=== PATIENT | male | born 1955 | race Caucasian/White ===

== ENCOUNTER 2025-07-13 19:16 | Emergency (ER) | payer OTHER, MEDICAID ==
[~2025-07-13] VITALS: Ht 180.3 cm; Wt 118.2 kg
[~2025-07-13 19:16] MED LIST: BENAZAPRIL; HYDR-1421
[2025-07-13 19:30] VITALS: PULSE 96; RESP 13; TEMP 97.9; O2SAT 97
[2025-07-13 19:41] LABS: Hematocrit 42.7 % (41.0-53.0); Hemoglobin 14.9 g/dL (13.5-17.5); Mean Corpuscular Hemoglobin 35.5 pg (28.0-32.0); Mean Corpuscular Volume 101.5 fL (80.0-100.0); Nucleated Red Blood Cells % 0.2 %
[2025-07-13 19:49] LABS: Chloride 106 mmol/L (98-107); Potassium 3.8 mmol/L (3.5-5.1); Sodium 136 mmol/L (136-145)
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
[2025-07-13 19:50] LABS: Anion Gap 8 (5-15); Carbon Dioxide 22 mmol/L (20-31)
[2025-07-13 19:55] LABS: BUN/Creatinine Ratio 9.3 (10.0-20.0); Blood Urea Nitrogen 9 mg/dL (9-23); Calcium 8.3 mg/dL (8.7-10.4); Glucose 218 mg/dL (74-106)
--- NOTE | 2025-07-13 20:00 | DVH ---
CHEST RADIOGRAPH Indication: CP Technique: Single frontal view of the chest was obtained Comparison: None FINDINGS: Lines and Tubes: None Lungs: Elevation right diaphragm with atelectasis in the right base. Pleura: No effusion. No pneumothorax. Cardiomediastinal contours: Unremarkable Bones: No acute osseous abnormality. IMPRESSION: 1. No acute cardiopulmonary disease.
[2025-07-13 21:00] VITALS: BP 139/82; PULSE 91; RESP 21; O2SAT 95
--- NOTE | 2025-07-14 08:42 | ECG ---
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
--- NOTE | 2025-07-14 10:44 | ECG ---
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
== END 2025-07-13 21:43 | disposition home or self-care (01) ==
LOC: EDUNIT# 19:16 → EDBD 19:16 → ER 19:16
DX: R07.89 Other chest pain (principal); I10 Essential (primary) hypertension; E78.5 Hyperlipidemia, unspecified; Z98.890 Other specified postprocedural states
CPT/HCPCS: 36415; 71045; 80048; 84484; 85025; 93005

== ENCOUNTER 2025-07-28 14:19 | Emergency (ER) | payer MEDICAID, OTHER ==
[~2025-07-28] VITALS: Ht 180.3 cm; Wt 109.0 kg
[2025-07-28 15:00] VITALS: PULSE 87; RESP 16; O2SAT 92
--- NOTE | 2025-07-28 16:25 | ED.PDOC ---
Musculoskeletal HPI Comments HPI: This is a 69 year old male presenting to the ED with chief complaint of right hip pain. Patient reports that he has been experiencing right sided hip pain after reaching up to get something from a shelf, over-extending his right hip. Patient relays that he has had multiple instances in the past of similar pain due to over-extension. Patient states he has not followed up with an orthopedic doctor regarding his chronic right hip issues since 2015. Patient denies any fall, injury, numbness, or weakness. Past Medical history: HTN, CHF, HLD, CKF, Liver Failure, Pancreatitis, IA, Chronic Back Pain, Chronic Right Hip pain Past Surgical history: Right Hip Replacement x 2004, Cardiac Stents Medications: Reviewed Social History: Denies smoking, ETOH, and drug use. Allergies: NKDA HPI: Poor Historian. REVIEW OF SYSTEMS: CONSTITUTIONAL: Denies acute: fever, diaphoresis, chills, generalized weakness. HEAD: Denies acute: headache, photophobia Eyes: Denies acute: Double vision, vision loss, eye pain, eye discharge. EARS: Denies acute: tinnitus, hearing loss, ear discharge, ear pain, THROAT: Denies acute: sore throat, swelling, difficulty swallowing , pain with swallowing, change in voice. NECK: Denies acute: neck pain, neck swelling, stiff neck. HEART: Denies acute : chest pain, palpitations, LUNGS: Denies acute: SOB, wheezing, cough, hemoptysis ABDOMEN: Denies acute: abdominal pain, Nausea, Vomiting, diarrhea, melena , hematemesis, hematochezia SKIN: Denies acute: rash, redness, lesions, itchiness. EXTREMITIES: Denies acute: calf pain, numbness, tingling, weakness, Denies acute: Low back pain. Neuro: Denies acute: focal neurological deficit, motor or sensory focal neurological deficit, tremors, seizure like activity, confusion, dizziness, change in mental status, loss of bowel or bladder function, cauda equina like symptoms. : Denies acute: dysuria, hematuria, flank pain, increase in urinary frequency. PSYCH: Denies acute: hallucination, suicidal ideation, homicidal ideation. PHYSICAL EXAM: General: -----moderate---acute distress, awake and alert. Head: normocephalic, atraumatic. No raccoon's eyes, no batres sign. Neck: supple, trachea is midline, no swelling. Throat: Normal phonation. Eyes:, no erythema, no purulent discharge, no proptosis, no icterus. Heart: regular rate, regular rhythm, no significant murmur appreciated. Lungs: no apparent respiratory distress, Able to speak in full sentences. No wheezing, no rhonchi, no crackles. No stridors Clear to auscultation bilaterally. Abdomen: non tender to palpation, non distended, soft, no guarding, no rebound, + bowel sounds. Obese Neuro: Awake, Alert, oriented to name, self, situation, follows commands GCS=15. Speech is normal. Skin: no petechia, no purpura, no cyanosis, non-pale, not jaundice. Lower extremities: --trace bilateral - Pitting edema no deformity, no focal swelling, no calf TTP. Makes eye contact. moves all four extremities. Decreased range of motion of the right hip secondary to pain. Face: no apparent facial droop. ED COURSE: DISCLAIMER: This medical document was created using an electronic medical record system with voice recognition software and computerized dictation system. Although this document has been carefully reviewed, there might still be some phonetic and typographical errors. Occasional wrong-word or "sound-alike" substitutions may have occurred due to the inherent limitations of voice recognition software. These areas are purely typographical due to imperfections of the software programs and do not reflect any compromise in the patient's medical care. Please read the chart carefully and recognize, using context, where these substitutions have occurred. Chief Complaint: Lower Extremity Time Seen by MD: 16:21 Reviewed Notes: Medications, Allergies Allergies: Coded Allergies: NO KNOWN ALLERGIES (Unverified , 07/30/10) Home Meds Active Scripts Baclofen (Baclofen) 20 Mg Tab, 0.5 TAB PO TID for 10 Days, #15 TAB 2 Refills Prov:DALILA GUTIERREZ FUNDRAISING OFFICER 07/28/25 Reported Medications Hydrocodone-Acetaminophen (Vicodin) 1 Tab Tab 07/30/10 [Benazapril] 40 MG No Conflict Check 07/30/10 Information Source: Patient Mode of Arrival: EMS Was a procedure done? Was a procedure done?: No Differential Diagnosis EXT Differential Diagnosis: Fracture, Sprain, Dislocation, DJD, Strain, Septic, Neurovascular injury, Arthritis, Bursitis X-Ray, Labs, Meds, VS Vital Signs Date Time Temp Pulse Resp B/P (MAP) Pulse Ox O2 Delivery O2 Flow Rate FiO2 07/28/25 23:56 98.3 76 14 104/54 (71) 96 98.3 07/28/25 21:15 127/79 07/28/25 19:50 98.4 79 20 110/50 (70) 94 98.4 07/28/25 18:00 98.2 92 95 119/81 (94) 95 98.2 07/28/25 17:50 79 20 94 Room Air* 0 21 07/28/25 16:55 132/78 07/28/25 15:00 87 16 92 Room Air* 0 21 07/28/25 15:00 98.5 87 18 136/60 (85) 92 98.5 07/28/25 14:41 98.7 100 19 127/78 98 98.7 Lab Test 07/28/25 16:35 Range/Units White Blood Count 11.5 H 4.4-10.8 10^3/uL Red Blood Count 4.23 L 4.5-5.90 10^6/uL Hemoglobin 14.6 13.5-17.5 g/dL Hematocrit 42.6 41.0-53.0 % Mean Corpuscular Volume 100.7 H 80.0-100.0 fL Mean Corpuscular Hemoglobin 34.5 H 28.0-32.0 pg Mean Corpuscular Hemoglobin Concent 34.3 32.0-36.0 g/dL Red Cell Distribution Width 14.5 H 11.8-14.3 % Platelet Count 89 L 140-450 10^3/uL Mean Platelet Volume 9.2 6.9-10.8 fL Neutrophils (%) (Auto) 75.7 37.0-80.0 % Lymphocytes (%) (Auto) 9.2 L 10.0-50.0 % Monocytes (%) (Auto) 9.6 0.0-12.0 % Eosinophils (%) (Auto) 5.1 0.0-7.0 % Basophils (%) (Auto) 0.4 0.0-2.0 % Neutrophils # (Auto) 8.7 H 1.6-8.6 10 ^3/uL Lymphocytes # (Auto) 1.1 0.4-5.4 10 ^3/uL Monocytes # (Auto) 1.1 0-1.3 10 ^3/uL Eosinophils # (Auto) 0.6 0-0.8 10 ^3/uL Basophils # (Auto) 0 0-0.2 10 ^3/uL Nucleated Red Blood Cells 0.1 % Platelet Estimate Decreased Anisocytosis (manual) Slight Sodium Level 138 136-145 mmol/L Potassium Level 3.7 3.5-5.1 mmol/L Chloride Level 103 98-107 mmol/L Carbon Dioxide Level 26 20-31 mmol/L Anion Gap 9 5-15 Blood Urea Nitrogen 15 9-23 mg/dL Creatinine 0.98 0.700-1.30 mg/dL Glomerular Filtration Rate Calc 85 >90 mL/min BUN/Creatinine Ratio 15.3 10.0-20.0 Serum Glucose 115 H 74-106 mg/dL Calcium Level 8.5 L 8.7-10.4 mg/dL Total Bilirubin 1.1 H 0.2-1.0 mg/dL Aspartate Amino Transferase (AST) 66 H 13-40 U/L Alanine Aminotransferase (ALT) 61 H 7-40 U/L Alkaline Phosphatase 142 H 46-116 U/L Total Protein 6.6 5.7-8.2 g/dL Albumin 3.1 L 3.2-4.8 g/dL [place] [address] Ph: [phone] DIAGNOSTIC IMAGING Diagnostic Imaging Report : [id number] Signed PATIENT: CHICA PERRYT: [id number] UNIT: [id number] : 1955 LOC: ER ROOM / BED: / AGE / SEX: 69 / M ADM STATUS: REG ER SERVICE 1103 ORDERING PHYSICIAN: JUDI ALVARADO DO PROCEDURE(s): ABPL - CT AB PEL WO CON-NO ORAL OR IV REASON: HIP PAIN ORDER NUMBER(s): [id number], ACCESSION NUMBER(s): [id number] CLINICAL HISTORY: HIP PAIN TECHNIQUE: CT of the abdomen and pelvis was performed without IV contrast. This exam was performed according to our departmental dose optimization program. Up-to-date CT equipment and radiation dose reduction techniques are utilized as appropriate. CTDI 24 DLP 1501 COMPARISON: None FINDINGS: Abdomen/Pelvis: The adrenal glands, gallbladder, bladder, and prostate gland are grossly unremarkable. The liver is cirrhotic in morphology with nodular contour. The spleen is moderately enlarged, measuring 15.3 cm in long axis. A hypodense right renal lesion is incompletely characterized due to lack of IV contrast. There is mild generalized inflammation within the mesentery which also surrounds the pancreas. The abdominal aorta is normal in course and caliber. There are no significant atherosclerotic calcifications. There is no free intraperitoneal air. There is a small amount of free fluid. There is no enlarged abdominal pelvic lymph node. There is no bowel wall thickening or dilatation. The appendix is normal. Other: The imaged lower thorax demonstrates aortic valvular and coronary artery calcifications. There is mild right lower lobe linear atelectasis. No acute osseous abnormality is evident. There is a right total hip arthroplasty. Impression: Cirrhotic liver morphology with moderate splenomegaly and small amount of ascite s. Small amount of ascites. Mild generalized peritoneal inflammation which also surrounds the pancreas. Please correlate with amylase lipase levels to exclude pancreatitis. Aortic valvular and coronary artery calcifications. ATED BY: TWAN QUINTANA MD DICTATED DATE/TIME: 07/28/251624 SIGNED BY: TWAN QUINTANA MD SIGNED DATE/TIME: 07/28/251624 CC: Time of 1ST Reevaluation: 17:21 Reevaluation 1ST: Unchanged Time of 2ND Reevaluation: 21:23 (The case was discussed with the admitting team (HPI, physical exam, labs and diagnostic tests that were available at the time of disposition, ED course, treatment plan) on the phone. They agreed to evaluate the patient and assume care of this patient from this point forward. JÚNIOR Renteria. ) Patient Education/Counseling: Diagnosis, Treatment Family Education/Counseling: No Family Present Comments MDM: patient presented with the above HPI.---her pains---workup was initiated. patient was found with the above mentioned diagnosis. the following medications were ordered: please refer to order lists of meds and tests obtained by myself Dr. Alvarado. Patient ED course and VS have been stabilized. Patient has been reassessed in the ED and remained in a stable condition. Pertinent incidental findings were discussed with the patient and/or family. Patient/family voices understanding and is agreeable with plan. Patient has been observed in the ED adequate length of time to insure improv ement/stability. Escalation of care considered: Consideration of escalation to observation or admission Patient unable to ambulate due to pain. Patient was ADMITTED to the medicine team for further evaluation and treatment of their presentation. All the reports of any imaging studies that were ordered by myself were reviewed by myself. Departure 1 Departure Time of Disposition: 00:00 Impression: Primary Impression: Right hip pain Additional Impressions: Unable to ambulate Liver cirrhosis Ascites Disposition: ADMITTED INPATIENT Admit to: Tele Condition: Guarded e-Prescriptions Baclofen (Baclofen) 20 Mg Tab 0.5 TAB PO TID for 10 Days, #15 TAB 2 Refills Prov: DALILA GUTIERREZ NP 07/28/25 Discharged With: Self Critical Care Note Critical Care Time?: No I personally scribed for JUDI ALVARADO DO ([email or web address]) on 07/28/25 at 16:25. Electronically submitted by Joni Beal ([email or web address]). I personally scribed for JUDI ALVARADO DO ([email or web address]) on 07/28/25 at 17:54. Electronically submitted by Joni Beal ([email or web address]). JUDI ALVARADO DO Jul 28, 2025 16:25
[2025-07-28] MEDS: fentaNYL CITRATE 100 MCG/2 ML VL IV ONE ×2 (16:55→21:15)
[2025-07-28 17:07] LABS: Hematocrit 42.6 % (41.0-53.0); Hemoglobin 14.6 g/dL (13.5-17.5); Mean Corpuscular Hemoglobin 34.5 pg (28.0-32.0); Mean Corpuscular Volume 100.7 fL (80.0-100.0); Nucleated Red Blood Cells % 0.1 %
[2025-07-28 17:11] LABS: Anion Gap 9 (5-15); BUN/Creatinine Ratio 15.3 (10.0-20.0); Bilirubin, Total 1.1 mg/dL (0.2-1.0); Blood Urea Nitrogen 15 mg/dL (9-23); Carbon Dioxide 26 mmol/L (20-31); Chloride 103 mmol/L (98-107); Potassium 3.7 mmol/L (3.5-5.1); Sodium 138 mmol/L (136-145); Total Protein 6.6 g/dL (5.7-8.2)
[2025-07-28 17:12] LABS: Alanine Aminotransferase 61 U/L (7-40); Albumin 3.1 g/dL (3.2-4.8); Alkaline Phosphatase 142 U/L (46-116); Calcium 8.5 mg/dL (8.7-10.4); Glucose 115 mg/dL (74-106)
[2025-07-28 17:19] LABS: Anisocytosis Slight
[2025-07-28 17:50] VITALS: PULSE 79; RESP 20; O2SAT 94
--- NOTE | 2025-07-28 22:28 | DVHINCON2 ---
DALILA GUTIERREZ [employer]ER 07/28/25 2227: Date of service: Jul 28, [address] ALVARADO Reason for Consultation Medical management History of Present Illness 69-year-old male with past medical history of hypertension, CHF, HLD, CKD, liver cirrhosis, pancreatitis, ID, chronic back pain, right hip replacement, chronic right hip pain presents with complaints of right-sided hip pain. Patient reported that he overextended himself while reaching to get something off of a shelf. Causing the pain patient states he is having difficulty walking. States he has had similar episodes in the past. Has actually been having chronic right hip pain for 10 years. Patient denies any falls or traumatic injuries. There are no complaints of fevers, chills, shortness of breath, chest pain, palpitations, nausea, vomiting, dysuria, hematemesis, hematochezia, melena. Past Medical History Hypertension, CHF, HLD, chronic kidney disease, liver cirrhosis, pancreatitis, ID, right hip replacement, chronic back pain, chronic right hip pain Social History Denies social history Allergies: Coded Allergies: NO KNOWN ALLERGIES (Unverified , 07/30/10) Home Meds Active Scripts Baclofen (Baclofen) 20 Mg Tab, 0.5 TAB PO TID for 10 Days, #15 TAB 2 Refills Prov:DALILA GUTIERREZ [employer] 07/28/25 Reported Medications Hydrocodone-Acetaminophen (Vicodin) 1 Tab Tab 07/30/10 [Benazapril] 40 MG No Conflict Check 07/30/10 Review of Systems 10 systems reviewed and negative except as per HPI Vital Signs Vital Signs Date Time Temp Pulse Resp B/P (MAP) Pulse Ox O2 Delivery O2 Flow Rate FiO2 07/28/25 21:15 127/79 07/28/25 18:00 98.2 92 95 95 98.2 07/28/25 17:50 Room Air* 0 21 Physical Exam General: Patient unkempt. Appearance stated age. Sitting up in gurney in no acute distress HEENT: Pupils equal and reactive to light and accommodation. Extraocular muscles intact. Mucous membranes moist. Conjunctiva pink anicteric sclerae. Lungs: bilateral air entry. No wheezes, rhonchi or rales. No visible respiratory distress Cardiovascular: Regular rate and rhythm. Normal S1 and S2. Abdomen: BS normoactive, soft, nontender, nondistended, no CVA tenderness Extremities: No clubbing, cyanosis, edema no calf tenderness. Pedal pulses 2+. Tenderness to right hip Neurological: Patient is alert and oriented x3. CN 2 through 7 intact. No focal deficits of gross sensory or motor examination Labs/Diagnostic Data Labs Test 07/28/25 16:35 Range/Units White Blood Count 11.5 H 4.4-10.8 10^3/uL Red Blood Count 4.23 L 4.5-5.90 10^6/uL Hemoglobin 14.6 13.5-17.5 g/dL Hematocrit 42.6 41.0-53.0 % Mean Corpuscular Volume 100.7 H 80.0-100.0 fL Mean Corpuscular Hemoglobin 34.5 H 28.0-32.0 pg Mean Corpuscular Hemoglobin Concent 34.3 32.0-36.0 g/dL Red Cell Distribution Width 14.5 H 11.8-14.3 % Platelet Count 89 L 140-450 10^3/uL Mean Platelet Volume 9.2 6.9-10.8 fL Neutrophils (%) (Auto) 75.7 37.0-80.0 % Lymphocytes (%) (Auto) 9.2 L 10.0-50.0 % Monocytes (%) (Auto) 9.6 0.0-12.0 % Eosinophils (%) (Auto) 5.1 0.0-7.0 % Basophils (%) (Auto) 0.4 0.0-2.0 % Neutrophils # (Auto) 8.7 H 1.6-8.6 10 ^3/uL Lymphocytes # (Auto) 1.1 0.4-5.4 10 ^3/uL Monocytes # (Auto) 1.1 0-1.3 10 ^3/uL Eosinophils # (Auto) 0.6 0-0.8 10 ^3/uL Basophils # (Auto) 0 0-0.2 10 ^3/uL Nucleated Red Blood Cells 0.1 % Platelet Estimate Decreased Anisocytosis (manual) Slight Sodium Level 138 136-145 mmol/L Potassium Level 3.7 3.5-5.1 mmol/L Chloride Level 103 98-107 mmol/L Carbon Dioxide Level 26 20-31 mmol/L Anion Gap 9 5-15 Blood Urea Nitrogen 15 9-23 mg/dL Creatinine 0.98 0.700-1.30 mg/dL Glomerular Filtration Rate Calc 85 >90 mL/min BUN/Creatinine Ratio 15.3 10.0-20.0 Serum Glucose 115 H 74-106 mg/dL Calcium Level 8.5 L 8.7-10.4 mg/dL Total Bilirubin 1.1 H 0.2-1.0 mg/dL Aspartate Amino Transferase (AST) 66 H 13-40 U/L Alanine Aminotransferase (ALT) 61 H 7-40 U/L Alkaline Phosphatase 142 H 46-116 U/L Total Protein 6.6 5.7-8.2 g/dL Albumin 3.1 L 3.2-4.8 g/dL Assessment - Right hip pain Patient was seen and evaluated ER [facility] 25. The patient's chart was reviewed in its entirety including lab work, imaging, physical assessment. During the emergency department evaluation CBC: W11.5, H&H 14.6/42.6, PLT 89, Na 138, K3.7, BUN 15, creatinine 0.98, GFR 85. Total bilirubin 1.1, AST 66, ALT 61 con sistent with a history of liver cirrhosis. CT of the abdomen and pelvis was interpreted per the radiologist and reviewed by myself. Impression does read cirrhotic liver morphology with moderately splenomegaly and small amount of ascites. Mild generalized peritoneal inflammation. No acute osseous abnormality is evident right total hip arthroplasty. On evaluation the patient has no complaints of abdominal pain, nausea, vomiting. When I spoke to the patient, the patient is alert and oriented x4, sitting up in the [facility] with steady balance. Patient states that he has localized pain to the right hip, which is making it difficult for him to walk. While in the emergency department he has been treated with IV fentanyl and requesting additional dosing. At this time I did discuss outpatient management with the patient. I provided him with 2 options. First option included being discharged home with outpatient physical therapy, home safety follow up, and an outpatient follow up appointment with orthopedics. Given that he states that he is having difficulty walking, the 2nd option included temporary senior living facility placement for physical therapy. Which he declined and states that he rather be discharged home at this time. Plan/Recommendation Given that there are no acute findings, the patient has remained hemodynamically stable without respiratory distress, and patient states he has been having chronic hip pain for 10 years. The patient can be discharged home. O foster care case manager Zully has been consulted to establish home safety follow up, outpatient physical therapy, follow up with orthopedics on an outpatient basis. Patient will also be provided with information for choice urgent care which can assist in these non emergent matters. The patient was provided with strict ER precautions including but not limited to fevers, chills, dizziness, syncope, shortness of breath, chest pain, palpitations, nausea, vomiting, hematemesis, hematochezia, melena. If any of these occur return to the nearest emergency department for further evaluation and treatment. Plan discussed with: Patient HITESH HINDS MD 07/29/25 1221: Allergies: Coded Allergies: NO KNOWN ALLERGIES (Unverified , 07/30/10) Home Meds Active Scripts Baclofen (Baclofen) 20 Mg Tab, 0.5 TAB PO TID for 10 Days, #15 TAB 2 Refills Prov:DALILA GUTIERREZ NP 07/28/25 Reported Medications Hydrocodone-Acetaminophen (Vicodin) 1 Tab Tab 07/30/10 [Benazapril] 40 MG No Conflict Check 07/30/10 Additional Comments Additional Comments Additional Comments Patient's chart is reviewed. Patient is seen and evaluated and discharge planning is done by nurse practitioner in the ER. I agree with his evaluation, documentation, assessment and care plan as outlined. DALILA GUTIERREZ NP Jul 28, 2025 22:27 HITESH HINDS MD Jul 29, 2025 12:21
[2025-07-28] MEDS ORDERED: BACL20TA PO (22:32)
[2025-07-28] MEDS ORDERED: NAP500T PO (22:33)
[2025-07-28 23:56] VITALS: BP 104/54; PULSE 76; RESP 14; TEMP 98.3; O2SAT 96
== END 2025-07-29 00:18 | disposition admitted as inpatient to this hospital (09) ==
LOC: ER 14:19 → EDBD 14:19 → ER 07-29 00:15
DX: M25.551 Pain in right hip (principal); K74.60 Unspecified cirrhosis of liver; R18.8 Other ascites; I13.0 Hypertensive heart and chronic kidney disease with heart failure and stage 1 through stage 4 chronic kidney disease, or unspecified chronic kidney disease; N18.9 Chronic kidney disease, unspecified; E78.5 Hyperlipidemia, unspecified; Z79.899 Other long term (current) drug therapy; Z87.19 Personal history of other diseases of the digestive system; Z95.5 Presence of coronary angioplasty implant and graft; Z96.641 Presence of right artificial hip joint; Z02.2 Encounter for examination for admission to residential institution
CPT/HCPCS: 36415; 74176; 80053; 85025; 96374; 96376; 99285; J3010